=== PATIENT | male | born 1980 | race Caucasian/White ===

== ENCOUNTER 2018-05-02 21:41 | Emergency (ER) | payer MEDICAID ==
[~2018-05-02] VITALS: Ht 152.4 cm; Wt 68.0 kg
[2018-05-02] MEDS ORDERED: SODIUM CHLORIDE 0.9% 1,000 ML IV ONE (23:17)
[2018-05-02] MEDS ORDERED: ONDANSETRON HCL 4MG/2ML VIAL IV STA (23:17)
[2018-05-02] MEDS ORDERED: MECLIZINE 25MG TABLET PO ONE (23:30)
[2018-05-03] MEDS ORDERED: MECLIZINE 25MG TABLET PO NR (00:30)
[2018-05-03 00:44] LABS: BASOPHILS % 0.2 % (0.0-2.0); EOSINOPHILS % 0.2 % (0.0-5.0); HEMATOCRIT. 43.7 % (42.0-52.0); HEMOGLOBIN. 14.8 g/dL (14.0-18.0); MEAN CORPUSCULAR HEMOGLOBIN 30.4 pg (28.0-32.0); MEAN CORPUSCULAR VOLUME 89.8 fL (80.0-94.0); MEAN PLATELET VOLUME 8.1 fl (7.4-10.4); MONOCYTES % 4.8 % (2.0-8.0); NEUTROPHILS % 85.8 % (40.0-76.0); PLATELET 280 x1000/uL (130-400); RED BLOOD CELL COUNT 4.87 mill/uL (4.7-6.1)
[2018-05-03 01:07] LABS: CHLORIDE 106 mEq/L (98-107)
[2018-05-03] MEDS ORDERED: MECLIZINE 25MG TABLET PO ONE (01:45)
[2018-05-03 03:27] VITALS: BP 120/82
== END 2018-05-03 03:29 | disposition home or self-care (01) ==
LOC: ER 21:41
DX: R42 Dizziness and giddiness (principal); R11.2 Nausea with vomiting, unspecified
CPT/HCPCS: 36415; 80053; 85025; 96361; 96374; 99284; J2405; J7030; Z7610; J8597